=== PATIENT | male | born 1985 ===

== ENCOUNTER 2016-07-14 07:10 | Emergency (ER) | payer OTHER ==
--- NOTE | 2016-07-14 08:22 | UC ---
Chelsy Rosales SooYoung, scribed for Sandi Peña DO on 07/14/16 at 0758 . Abdominal Pain Male HPI - HPI Summary HPI Summary: A 30 y/o M presents to [facility] [place] with c/o sharp, acute abd pain onset approx 0200. The pain woke him from sleep and he rates it as 6-7 out of 10. Associated sx: nausea, subjective fever, chills, mild dyspnea. Denies vomiting, diarrhea, melena, dysuria, sore throat. Pt took Pepto-Bismal with no relief. Alleviating factors: dry heaving. No aggravating factors. He has not eaten today, he ate spicy potato chips and stir flores last night. Pt is on well water, denies taking any recent ABX, exposure to farm animals, retilian pets. Has had 3 normal bms since 2am. - History of Current Complaint [place] [facility] [place] Complaint: ABDOMEN PAIN Time Seen by Provider: 07/14/16 07:47 Hx Obtained From: Patient Onset/Duration: Sudden Onset, Lasting Hours, Still Present Timing: Constant Severity Initially: Moderate Severity Currently: Moderate Pain Intensity: 7 Pain Scale Used: 0-10 Numeric Location: Diffuse Radiates: No Character: Cramping, Sharp Aggravating Factor(s):: Nothing Alleviating Factor(s): Nothing - dry heaving Associated Signs And Symptoms: Positive: Fever, Nausea. Negative: Cough, Chest Pain, Constipation, Blood in Stool, Urinary Symptoms, Vomiting, Diarrhea, Penile Discharge - Allergies/Home Medications Allergies/Adverse Reactions: Allergies Allergy/AdvReac Type Severity Reaction Status Date / Time No Known Allergies Allergy Verified 07/14/16 07:19 Home Medications: Home Medications Bismuth Subsalicylate [Pepto Bismol] 262 mg PO PRN 07/14/16 [History] Levocetirizine Dihydrochloride [Xyzal Allergy 24Hr] 5 mg PO PRN 07/14/16 [ History] PMH/Surg Hx/FS Hx/Imm Hx Previously Healthy: No Endocrine History Of: Denies: Diabetes, Thyroid Disease Cardiovascular History Of: Denies: Cardiac Disorders, Hypertension Respiratory History Of: Denies: COPD, Asthma GI/ History Of: Denies: Ulcer - Surgical History Surgical History: None - Family History Known Family History: Positive: Hypertension, Diabetes - Social History Lives: Alone Alcohol Use: Occasionally Substance Use Type: None Smoking Status (MU): Never Smoked Tobacco Review of Systems Constitutional: Fever - SUBJECTIEV, Chills Skin: Negative Eyes: Negative ENT: Negative Respiratory: Other - pos: mild dyspnea Cardiovascular: Negative Gastrointestinal: Abdominal Pain, Other - pos: nausea Genitourinary: Negative Motor: Negative Neurovascular: Negative Musculoskeletal: Negative Neurological: Negative Psychological: Negative All Other Systems Reviewed And Are Negative: Yes Physical Exam Triage Information Reviewed: Yes Appearance: Well-Appearing, Well-Nourished, Pain Distress - MODERATE Vital Signs: Initial Vital Signs Temp 97.7 F 07/14/16 07:12 Pulse 82 07/14/16 07:12 Resp 18 07/14/16 07:12 BP 137/93 07/14/16 07:12 Pulse Ox 100 07/14/16 07:12 Vital Signs Reviewed: Yes Eyes: Positive: Conjunctiva Clear. Negative: Discharge ENT: Positive: Hearing grossly normal. Negative: Muffled/hoarse voice Neck exam: Normal Neck: Positive: Supple Respiratory: Positive: Lungs clear, Normal breath sounds, No respiratory distress, No accessory muscle use Cardiovascular: Positive: RRR, No Murmur Abdomen Description: Positive: Distended - ABD FEELS firm and distended on the right (though pt is also extremely ticklish which may have skewed exam), Guarding, Other: - POS: EXQUISITE TENDERNESS AT RLQ, UMBILICUS. MILD TENDERNESS AT LLQ AND SUPRAPUBICALLY. Bowel Sounds: Positive: Present Musculoskeletal Exam: Normal Neurological: Positive: Alert, Muscle Tone Normal Psychological Exam: Normal Psychological: Positive: Age Appropriate Behavior Skin Exam: Normal, Other - POS: WARM, DRY, NML COLOR Abd Pain Male Course/Dx - Course Course Of Treatment: Elevated blood pressure without diagnosis of hypertension. Patient referred to PCP for follow-up within 4 weeks. - Differential Dx/Clinical Impression Differential Diagnosis/HQI/PQRI: Appendicitis, Constipation, Renal Colic, Ureteral Stone, Urinary Tract Infection, Other - atypical gastroenteritis Provider Diagnoses: abd pain r/o appy - Physician Notification/Consults Discussed Patient Care With: DR. FARIA, ED PHYS Time Discussed With Above Provider: 08:07 Instructed by Provider To: MD Will See In ED Discharge - Discharge Plan Condition: Stable Disposition: [facility] Discharge Disposition Comment: TO [facility] Additional Instructions: Your blood pressure reading today was 137/93, which is PRE-HYPERTENSIVE. Follow-up with your primary care provider within 4 weeks for blood pressure readings and further evaluation. Establish with a new primary care provider and follow-up within 4 weeks for blood pressure readings and further evaluation. If you cant find a provider, try to check your blood pressure on your own and see if its above 120/80. If so , follow up for further evaluation and treatment. Lab Results - Lab Results Lab Results: 07/14/16 08:11 POC Urine Color Dark yellow POC Urine Clarity Clear POC Urine pH 6.5 POC Ur Specif [place] 1.020 POC Urine Protein 1+ H POC Ur Glucose (UA) Negative POC Urine Ketones 3+ H POC Urine Blood Negative POC Urine Nitrite Negative POC Urine Bilirubin Negative POC Urine Urobilinogen 1.0 POC U Leukocyte Esteras Negative The documentation as recorded by the Chelsy carr SooYoung accurately reflects the service I personally performed and the decisions made by me, Sandi Peña DO.
[2016-07-14 09:21] VITALS: BP 134/74
== END 2016-07-14 08:30 | disposition short-term general hospital (02) ==
LOC: UCEAST 07:10
DX: R10.9 Unspecified abdominal pain (principal)
CPT/HCPCS: 81003; 99203; G0463

== ENCOUNTER 2016-07-14 09:08 | Day surgery (SDC) | payer OTHER ==
--- NOTE | 2016-07-14 09:30 | ED ---
Abdominal Pain/Male - HPI Summary HPI Summary: 30 male presents with complaints of lower RLQ and LLQ abdominal pain that began around 0200 today 07/14/16. Sent over from to rule out appey. Patient states the pain woke him up from his sleep. Denies vomiting, diarrhea and constipation. Patient states he the pain is dull and constant without radiation. Pain was an 8/10 at onset however it is now a 6/10. Took pepto bismol and it did not give him any relief. Patient states the pain is not aggravated by anything. Nothing really makes the pain better. Was nauseous and dry heaving however has improved. No recent antibiotics, travel and not around farm animals. Ate stir flores and spicy chips last night around 9pm. Denies epigastric pain. Denies blood in bowel. Denies any new urinary or genitalia symptoms. States he suffers from urinary frequency normally. Denies any PMHx besides seasonal allergies. - History of Current Complaint Chief Complaint: EDAbdPain Stated Complaint: ABD PAIN Hx Obtained From: Patient Onset/Duration: Sudden Onset, Lasting Hours Timing: Constant Severity Initially: Moderate Severity Currently: Moderate Pain Intensity: 6 Pain Scale Used: 0-10 Numeric Location: Discrete At: RLQ, Discrete At: LLQ Radiates: No Character: Dull Aggravating Factor(s): Nothing - dry heaving Alleviating Factor(s): Nothing Associated Signs And Symptoms: Positive: Negative, Nausea. Negative: Back Pain , Constipation, Blood in Stool, Urinary Symptoms, Vomiting, Diarrhea - Allergies/Home Medications Allergies/Adverse Reactions: Allergies Allergy/AdvReac Type Severity Reaction Status Date / Time No Known Allergies Allergy Verified 07/14/16 07:19 Home Medications: Home Medications RX: Bismuth Subsalicylate [Pepto-Bismol] 262 mg PO TID PRN 07/14/16 [History Confirmed 07/14/16] RX: LevoCETirizine TAB (NF) [Xyzal TAB (NF)] 5 mg PO DAILY PRN 07/14/16 [ History Confirmed 07/14/16] PMH/Surg Hx/FS Hx/Imm Hx Endocrine/Hematology History: Denies: Hx Diabetes, Hx Thyroid Disease Cardiovascular History: Denies: Hx Hypertension Respiratory History: Denies: Hx Asthma, Hx Chronic Obstructive Pulmonary Disease (COPD) GI History: Denies: Hx Ulcer, Other GI Disorders - Surgical History Surgery Procedure, Year, and Place: none - Immunization History Immunizations Up to Date: Yes Infectious Disease History: No Infectious Disease History: Denies: Hx Clostridium Difficile, Hx Hepatitis, Hx Human Immunodeficiency Virus (HIV), Hx of Known/Suspected MRSA, Hx Shingles, Hx Tuberculosis, Hx Known/ Suspected VRE, Hx Known/Suspected VRSA, History Other Infectious Disease, Traveled Outside the [place] in Last 30 Days - Family History Known Family History: Positive: Hypertension, Diabetes - Social History Alcohol Use: Occasionally Substance Use Type: Reports: None Smoking Status (MU): Never Smoked Tobacco Review of Systems Positive: Fever, Chills - subjective ENT: Negative Cardiovascular: Negative Respiratory: Negative Positive: Abdominal Pain - RLQ, LLQ, Nausea Positive: frequency - his norm Skin: Negative Neurological: Negative All Other Systems Reviewed And Are Negative: Yes Physical Exam Triage Information Reviewed: Yes Vital Signs On Initial Exam: Initial Vitals Temp Pulse Resp BP Pulse Ox 99.2 F 100 14 134/95 100 07/14/16 09:12 07/14/16 09:12 07/14/16 09:12 07/14/16 09:12 07/14/16 09:12 Vital Signs Reviewed: Yes Appearance: Positive: Well-Appearing, No Pain Distress, Well-Nourished Skin: Positive: Warm, Skin Color Reflects Adequate Perfusion, Dry Head/Face: Positive: Normal Head/Face Inspection Eyes: Positive: Normal, Conjunctiva Clear ENT: Positive: Normal ENT inspection, Hearing grossly normal, Pharynx normal Neck: Positive: Supple, Nontender, No Lymphadenopathy Respiratory/Lung Sounds: Positive: Clear to Auscultation, Breath Sounds Present. Negative: Rales, Rhonchi, Wheezes Cardiovascular: Positive: Normal, RRR, Pulses are Symmetrical in both Upper and Lower Extremities Abdomen Description: Positive: No Organomegaly, Distended, Guarding - patient was exquisetly tickelish and may have obscured exam, McBurney's Point Tenderness , Peritoneal Signs, Other: - tender on palpation of RLQ and umbilical region. Positive rebound, rovsing and psoas. Negative: Bruit, CVA Tenderness (R), CVA Tenderness (L), Hepatomegaly, Pulsatile Mass Bowel Sounds: Positive: Present Male Genital Exam: Positive: normal genitalia - per patient Musculoskeletal: Positive: Normal, Strength/ROM Intact Neurological: Positive: Normal, Sensory/Motor Intact, Alert, Oriented to Person Place, Time, Normal Gait Psychiatric: Positive: Normal Diagnostics - Vital Signs Vital Signs Temp Pulse Resp BP Pulse Ox 07/14/16 09:12 99.2 F 100 14 134/95 100 - Laboratory Result Diagrams: 07/14/16 11:02 07/14/16 11:02 Lab Statement: Any lab studies that have been ordered have been reviewed, and results considered in the medical decision making process. - CT abdomen/pelvis CT Interpretation: Positive (See Comments) - Dilated fluid-filled appendix which also has air within it. There appears to be an appendicolith at the appendiceal orifice. Findings are consistent with acute appendicitis. CT Interpretation Completed By: Radiologist Re-Evaluation - Re-Evaluation First Eval Re-Evaluation Time: 12:00 Change: Improved - patients' pain was still present however did improve after toradol. patient aware of CT and labwork findings. will be consulted by general surgery. no complaints of nausea/vomiting. Abdominal Pain Fem Course/Dx - Course Course Of Treatment: given toradol and fluids. labs obtained, CT with contrast ordered to due PE findings and labwork, elevated WBC, low grade fever. Had some relief after toradol, no nausea/vomtiing at this time. Ct showed appendicitis. ontacted Dr Magdaleno at 14:20. Will be admitted for appendectomy. - Diagnoses Differential Diagnosis/HQI/PQRI: Appendicitis, Diverticulitis, Gall Bladder Disease, Urinary Tract Infection, Other Provider Diagnoses: Appendicitis - Provider Notifications Discussed Care Of Patient With: Dr Magdaleno Time Discussed With Above Provider: 14:20 Instructed by Provider To: Admit As Inpatient Discharge - Discharge Plan Condition: Good Disposition: ADMITTED TO [facility]
[2016-07-14] MEDS ORDERED: NS 0.9% 1000 ML* 1,000 ML IV ONE (09:35)
[2016-07-14] MEDS ORDERED: Ketorolac INJ* 30 MG/ML 1 ML VIAL IV ONE (09:35)
[2016-07-14] MEDS ORDERED: Ketorolac INJ* 30 MG/ML 1 ML VIAL ONE ×2 (10:59→15:59)
[2016-07-14 11:18] LABS: Hematocrit 46 % (42-52); Hemoglobin 15.8 g/dl (14.0-18.0); Mean Corpuscular HGB Conc 34 g/dl (31-36); Mean Corpuscular Hemoglobin 30 pg (27-31); Mean Corpuscular Volume 87 fL (80-94); Mean Platelet Volume 8 um3 (7.4-10.4); Red Blood Count 5.34 10^6/ul (4.0-5.4); Red Cell Distribution Width 13 % (10.5-15); White Blood Count 19.7 10^3/ul (3.5-10.8)
[2016-07-14 11:35] LABS: ALT 27 U/L (7-52); AST 15 U/L (13-39); Albumin 4.4 g/dL (3.2-5.2); Alkaline Phosphatase 51 U/L (34-104); Anion Gap 7 mmol/L (2-11); BUN/Creatinine Ratio 13.7 (8-20); Blood Urea Nitrogen 14 mg/dL (6-24); CO2 Carbon Dioxide 25 mmol/L (22-32); Chloride 103 mmol/L (101-111); EGFR African American 109.6 (>60); EGFR Non-African American 85.2 (>60); Globulin 2.4 g/dL (2-4); Glucose 122 mg/dL (70-100); Lipase < 10 U/L (11.0-82.0); Sodium 135 mmol/L (133-145); Total Protein 6.8 g/dL (6.4-8.9)
[2016-07-14] MEDS ORDERED: Iohexol 300* (CONTRAST) 10 ML SDV IV ONE (13:30)
--- NOTE | 2016-07-14 14:14 | RAD ---
Indication: Rule out appendicitis, right lower quadrant pain. Contrast: Administered 81.0 ml of OMNIPAQUE 300 mgi/ml CT of the abdomen and pelvis was performed after oral and IV contrast administration. Coronal and sagittal reconstructed images were obtained. Lung bases demonstrate no pleural fluid, nodules or masses. Heart is of normal size without evidence of pericardial effusion. Liver is normal in size. No focal lesions or intrahepatic ductal dilatation is noted. The spleen is normal in size. The pancreas demonstrates no mass or pancreatic duct dilatation. The common duct is not dilated. The gallbladder demonstrates no calcified gallstones. No pericholecystic fluid or wall thickening is noted. No adrenal lesions are noted. The kidneys demonstrate no hydronephrosis in either kidney. CT of the pelvis demonstrates an appendicolith at the orifice of the appendix. The appendix is dilated measuring up to 14 mm. Fluid and air is noted in the dilated appendix. Small bowel demonstrates no abnormal dilatation. IMPRESSION: Dilated fluid-filled appendix which also has air within it. There appears to be an appendicolith at the appendiceal orifice. Findings are consistent with acute appendicitis.
[2016-07-14] MEDS ORDERED: HYDROmorphone* 1 MG/ML 1 ML SYR IV PRN (14:50)
[2016-07-14] MEDS ORDERED: Ondansetron INJ* 2 MG/ML VIAL IV PRN (14:50)
[2016-07-14] MEDS ORDERED: ceFOXitin 2 GM IVPREMIX* 2 GM/50 ML BAG ONE (15:41)
[2016-07-14] MEDS ORDERED: Lidocaine 1% INJ* 10 MG/ML 30 ML SDV ONE (15:55)
[2016-07-14] MEDS ORDERED: fentaNYL* 50 MCG/ML 2 ML VIAL (100 MCG VIAL) ONE (15:58)
[2016-07-14] MEDS ORDERED: Midazolam* 1 MG/ML 2 ML VIAL (2 MG) ONE (15:58)
[2016-07-14] MEDS ORDERED: Ondansetron INJ* 2 MG/ML VIAL ONE (15:59)
[2016-07-14] MEDS ORDERED: Succinylcholine* 20 MG/ML 10 ML VIAL ONE (15:59)
[2016-07-14] MEDS ORDERED: Propofol* 10 MG/ML 20 ML BTL IV PUSH ONE (15:59)
[2016-07-14] MEDS ORDERED: Dexamethasone IV* 4 MG/ML 1 ML (4 MG) ONE (15:59)
[2016-07-14] MEDS ORDERED: Bupivacaine 0.25% EPI 200,000* 30 ML SDV ONE (16:00)
[2016-07-14] MEDS ORDERED: Rocuronium* 10 MG/ML VIAL ONE (16:01)
[2016-07-14] MEDS ORDERED: Glycopyrrolate IV* 0.2 MG/ML 1 ML VIAL ONE (16:01)
[2016-07-14] MEDS ORDERED: Neostigmine Methylsulfate* 2 MG/2 ML SYRINGE ONE (16:01)
--- NOTE | 2016-07-14 16:26 | HP ---
ADMISSION HISTORY AND PHYSICAL: DATE OF ADMISSION: 07/14/16 REASON FOR ADMISSION: Abdominal pain and acute appendicitis. HISTORY OF PRESENT ILLNESS: Samuel is a pleasant 30-year-old gentleman who presented to the em ergency room earlier this morning with complaints of worsening right lower quadrant abdominal pain s irineo earlier this morning. He notes that his pain began around 2 o'clock this morning that has swapna en progressively worse with more localization on the lower abdomen that was more present on the righ t lower quadrant as time went. He also reports associated dry heaves, but denies any vomiting, feve r, chills, or any other associated symptoms. The pain he states was being dull with some sharp epis odes lasting a few minutes at the time, approximately 8/10 or 9/10, localized to the right lower lucy drant with no radiation of pain. He took some Pepto-Bismol and it did not give him any relief. He presented to the emergency room and had laboratory workup that revealed leukocytosis with a white co unt of 19,000. He also had a CT scan of the abdomen and pelvis that was consistent with dilated tom endix, fecalith, and other findings revealing acute appendicitis. He is a previously healthy 30-yea r-old gentleman with no significant past medical or surgical history. PAST MEDICAL HISTORY: Essentially unremarkable. He reports some seasonal allergies usually in the spring. He denies any history of lung, liver, heart, or kidney disease. PAST SURGICAL HISTORY: Beside having his wisdom teeth extracted, he denies any other surgeries done in the past. CURRENT MEDICATIONS: His medications at home include: 1. Xyzal 5 mg p.o. daily. 2. Pepto-Bismol chewable tablets as needed for indigestion. ALLERGIES: He has no known drug allergies. FAMILY HISTORY: Noncontributory. SOCIAL HISTORY: The patient works as a software verification engineer. He is a nonsmoker. He denies alcohol in take and caffeine intake is minimal. REVIEW OF SYSTEM: See HPI, otherwise negative. He denies any headache, dizziness, syncope, blurred vision, or shortness of breath. No chest pain, wheezing, or cough. He denies any dysuria, hematur ia, or urinary frequency. He admits to right lower quadrant abdominal pain with associated nausea, but denies any vomiting, changes in the bowel habits, or bleeding per rectum. PHYSICAL EXAMINATION GENERAL: He is a pleasant healthy-appearing 30-year-old gentleman and in no acute distress or disco mfort at the time of admission. VITALS: His vitals revealed a temperature of 99.2, blood pressure of 134/95, pulse of 93, respirati on of 14, and O2 sat of 100% on room air. HEENT: Sclerae anicteric. PERRLA. EOMs intact. Oropharynx is pink, moist, with no exudate. NECK: Supple. Trachea midline. No cervical adenopathy or thyromegaly. LUNGS: Clear to auscultation bilaterally. No rales, wheezes, or rhonchi. HEART: Regular rate and rhythm. Normal S1 and S2 without rubs, murmurs, or gallops. BACK: With normal curvature. No CVA tenderness. ABDOMEN: Soft and nondistended. Moderate right lower quadrant tenderness noted on deep palpation t hat was more pronounced at McBurney's point. There is some guarding and rebound tenderness as well, but no rigidity. No hernias, masses, or hepatosplenomegaly. EXTREMITIES: Without cyanosis, clubbing, or edema. NEUROLOGIC: Grossly intact. RECTAL EXAM: Deferred at this time. LABORATORY WORKUP: White count of 19,700, hemoglobin 15.8, hematocrit 46, platelets of 253. His c hemistry was essentially within normal limits as well as LFTs, alk phos, lipase, and C-reactive prot ein. ACCESSORY DIAGNOSTIC DATA: CT scan of the abdomen and pelvis revealed a dilated appendix with some fluid filled as well as some air trapped, also showed an appendiceal orifice fecalith. All these fi ndings were consistent with acute appendicitis. ASSESSMENT: A 30-year-old gentleman with signs and symptoms as well as CT scan finding consistent w ith acute appendicitis. PLAN: The patient will be directly admitted for observation. We discussed with him proceeding with laparoscopic appendectomy. The rationale, indications, risks, and benefits of surgery were discuss ed with him and his father who was sitting in the room as well. Risks include, but not limited to, infection, bleeding, or injury to adjacent structure. He appears to understand and wishes to go for th with the surgery. He has been n.p.o. since 5 o'clock this morning. We will keep his IV fluid ru nning and give him a prophylactic dose of Zosyn and he will be likely taken to the operating room citlalli pickard this evening in anticipation for surgery. We will follow him up accordingly. UMU BARAJAS [id number]/[facility] #: [id number]
--- NOTE | 2016-07-14 17:08 | SURGPN ---
Brief Operative Note - Surgery Procedures: Pre-OP Diagnoses: acute appendicitis Post-op Diagnosis: same Procedure: Laparoscopic appendectomy Surgeon: Rasta Asst: none Anethesia: OSITO Jara EBL: minimal IVF: 900cc crystalloid Specimen: appendix Drains: none
[2016-07-14] MEDS ORDERED: DiMENhydriNATE IV* 50 MG/ML VIAL IV PUSH PRN (17:15)
[2016-07-14] MEDS ORDERED: fentaNYL* 50 MCG/ML 2 ML VIAL (100 MCG VIAL) IV PRN (17:15)
[2016-07-14] MEDS ORDERED: Piperac/Tazob 3.375 gm in NS* 3.375 GM/100 ML BAG IVPB SCH ×2 (18:30→22:30)
[2016-07-14] MEDS ORDERED: ZOSYN 3.375 GM ONE TIME DOSE-OVER 30 MINUTES IVPB (18:30)
[2016-07-14 18:53] VITALS: BP 138/88
--- NOTE | 2016-07-15 04:44 | OP ---
CC: [facility] OPERATIVE REPORT: DATE OF OPERATION: 07/14/16 DATE OF : 83 SURGEON: Gilbert Magdaleno MD SURVEYING TECHNICIAN: None. ANESTHESIOLOGIST: Dr. Jara. ANESTHESIA: General anesthesia. PRE-OP DIAGNOSIS: Acute appendicitis. POST-OP DIAGNOSIS: Acute appendicitis. OPERATIVE PROCEDURE: Laparoscopic appendectomy. ESTIMATED BLOOD LOSS: Minimal. FLUIDS: Minimal crystalloid fluid given of 900 cc. SPECIMEN: Appendix, nonperforated. DRAINS: None. COUNTS: Lap pad count and instrument count correct at the end of the procedure. INDICATIONS: Mr. Stephenson is a 30-year-old gentleman who was admitted to the emergency room, seen b vamshi hinojosa and Prabhu SANZ. His workup including labs and CT scan were consistent with acute appendicit is. I examined the patient and went over the details and recommended laparoscopic appendectomy. I described the procedure going over the risks, benefits, and alternatives to him and his father. We discussed the possible complications, which included not limited to bleeding, infection, need for ad ditional procedures, organ injury, abscess formation, and prolong hospitalization. The patient agre ed and signed consent. DESCRIPTION OF PROCEDURE: He was identified in the preoperative area and marked, brought to the ope rating room and placed on the operating table in supine position. Preoperative antibiotics were give n. Sequential devices were placed on bilateral lower extremities. General anesthesia was induced. The patient's abdomen was prepped and draped in a standard surgical fashion. Time-out was performe d. Folds of the umbilicus were elevated anteriorly and a Veress needle was inserted into the abdominal cavity, which was then allowed to insufflate to a pressure of 15 mmHg. The patient tolerated the in sufflation well. A 12-mm trocar was inserted in the right upper quadrant. Laparoscope was inserted through this and there was no evidence of injury from the trocar insertion or Veress needle, which was then removed. A 5-mm trocar was then inserted at the umbilicus and a 5-mm in the suprapubic are a. Table was repositioned. Appendix was identified, adhered to the anterior abdominal wall. It was sh owed some gangrenous changes. It was dilated without perforation. The small bowel was reflected superiorly and we could identify the appendix in its entirety. A wind ow was made through the mesoappendix and a 45-mm mora TIMUR stapling device was fired across this. Ad ditional mesentery was taken down with electrocautery until we were at the base of the appendix. Th ere were healthy appendiceal and cecal tissue. A 45 mm [place] TIMUR stapling device was fired across thi s healthy tissue and the appendix was placed in endoscopic retrieval bag. Attention was turned towards the pelvis. There was some free fluid. This was drawn out with 4x8 th at was placed inside the abdomen and removed. No other findings were identified. Bowel was otherwi se normal appearing. Table was repositioned back to neutral. The 12-mm trocar was removed as well as the appendix in the endoscopic retrieval and passed off as specimen. The abdomen was allowed to collapse. Trocars were removed under direct vision and all 3 skin incisions were reapproximated wit h 4-0 Monocryl subcuticular sutures. Steri-Strips and sterile dressing were applied. The patient t olerated the procedure well, was awoken up in the OR, and transferred to the PACU in stable conditio n. [id number]/[facility] #: [id number]
== END 2016-07-14 19:27 | disposition home or self-care (01) ==
LOC: ED 09:08 → OR 15:13
PROVIDERS: ATTEND Surgery
DX: K35.80 Unspecified acute appendicitis (principal)
CPT/HCPCS: 36415; 74177; 80053; 83605; 83690; 85025; 86140; 88304; 96374; 96375; 99283; C1776; J0330; J0694; J1100; J1885; J2001; J2250; J2405; J2543; J2704; J3010; Q9967